=== PATIENT | male | born 1950 | race Caucasian/White ===

== ENCOUNTER 2017-08-05 12:48 | Day surgery (SDC) | payer MEDICARE, BC ==
[~2017-08-05] VITALS: Ht 182.9 cm; Wt 89.6 kg
[2017-08-05] VITALS (7 sets, daily range): BP systolic 138–150; BP diastolic 82–93; PULSE 65–99; TEMP 97.4–97.8
[2017-08-05] MEDS ORDERED: PRILOSEC 20MG20 MG PO (13:09)
== END 2017-08-05 20:00 | disposition home or self-care (01) ==
LOC: SDCO 12:48 → JCC 17:50 → SDCO 20:00
DX: N20.1 Calculus of ureter (principal); R03.0 Elevated blood-pressure reading, without diagnosis of hypertension; K21.9 Gastro-esophageal reflux disease without esophagitis; Z87.442 Personal history of urinary calculi; Z87.891 Personal history of nicotine dependence; Z80.9 Family history of malignant neoplasm, unspecified
CPT/HCPCS: OP; C1769; J0690; J1100; J2405; J2704; J3010; J7120; Q9967